=== PATIENT | male | born 1985 | race Caucasian/White ===

== ENCOUNTER 2018-10-18 05:30 | Day surgery (SDC) | payer OTHER ==
[2018-10-04 09:15] LABS: HEMATOCRIT 44.7 % (37.9-51.0); HEMOGLOBIN 15.6 g/dL (13.5-17.0); MEAN CORPUSCULAR HGB CONC 34.9 g/dL (32.0-36.0); MEAN CORPUSCULAR VOLUME 92 fl (80-97); PLATELET COUNT 199 10^3/uL (150-450); RED BLOOD COUNT 4.89 10^6/uL (4.35-5.55); RED CELL DISTRIBUTION WIDTH 12.6 % (11.5-14.0); WHITE BLOOD COUNT 5.1 10^3/uL (4.0-10.5)
[~2018-10-18 05:30] MED LIST: ACETAMINOPHEN 325 MG TABLET PO PRN; CEFAZOLIN 1 GM/D5W RTU 1 GM/50 ML RTUPB IV ONE; CEFAZOLIN 1 GM/D5W RTU 1 GM/50 ML RTUPB IV PRN; LACTATED RINGERS 1000 ML IV PRN; SCOPOLAMINE HYDROBROMIDE 1.5 MG PATCH.TD72 TD PRN
[2018-10-18] MEDS ORDERED: SCOPOLAMINE HYDROBROMIDE 1.5 MG PATCH.TD72 ONE (05:35)
[2018-10-18] MEDS ORDERED: BUPIVACAINE HCL 0.25 % INJ/PF (2.5 MG/1 ML) 30 ML VIAL ONE (06:50)
[2018-10-18] MEDS ORDERED: MIDAZOLAM 2 MG/2 ML INJ ONE (07:12)
[2018-10-18] MEDS ORDERED: FENTANYL CITRATE INJ/PF 100 MCG/2 ML AMPUL ONE (07:12)
[2018-10-18] MEDS ORDERED: HYDROMORPHONE HCL INJ/PF 2 MG/ML AMPULE ONE (07:13)
[2018-10-18] MEDS ORDERED: PROPOFOL INJ 200 MG/20 ML VIAL IV ONE (07:13)
[2018-10-18] MEDS ORDERED: PROMETHAZINE HCL INJ 25 MG/1 ML VIAL ONE (07:30)
[2018-10-18] MEDS ORDERED: ONDANSETRON HCL INJ/PF 4 MG/2 ML SDV IV PRN (07:54)
[2018-10-18] MEDS ORDERED: PROMETHAZINE HCL INJ 25 MG/1 ML VIAL IV PRN (07:54)
[2018-10-18] MEDS ORDERED: MEPERIDINE HCL/PF INJ 25 MG/1 ML DISP.SYRIN IV PRN (07:54)
[2018-10-18] MEDS ORDERED: MORPHINE SULFATE 10 MG/ML INJ IV PRN (07:54)
[2018-10-18] MEDS ORDERED: FENTANYL CITRATE INJ/PF 100 MCG/2 ML AMPUL IV PRN ×3 (07:54)
[2018-10-18] MEDS ORDERED: OXYCODONE-ACETAMINOPHEN 5-325 MG TABLET PO PRN ×3 (07:54→09:15)
[2018-10-18] MEDS ORDERED: DIPHENHYDRAMINE HCL 50 MG/ML VIAL IV PRN (07:54)
--- NOTE | 2018-10-18 09:15 | Discharge Summary ---
Discharge Summary (SDC) - Discharge Final Diagnosis: umbilical and ventral wall hernia Date of Surgery: 10/18/18 Discharge Date: 10/18/18 Condition: Good Forms: ASU Anesthesia D/C Instruction, Discharge POC-Surgical Service Treatment or Instructions: [facility] [address] [place] [id number] Discharge Instructions: Laparoscopic Surgery 1. General Information: a. DO NOT DRIVE a car or operate dangerous machinery for 3-4 days or while taking narcotic pain pills. b. DO NOT consume alcohol, tranquilizers, sleeping medications or any non- prescribed medications for 24 hours unless approved by your doctor or as long as taking narcotic prescription medications. c. DO NOT make important decisions or sign any important papers for the first 24 hours after surgery. d. When discharged home the same day of surgery have a responsible person with you for the first night. 2. Activity Restrictions: 8 weeks. a. NO heavy lifting, straining abdominal muscles, bending over a lot, yard work, house work, or sports for [address] for 3-4 days . c. It is fine to go for walks, up and down steps, ride in a car. d. Elevate your head when sleeping/resting. 3. Treatment: a. You may shower 48 hours after surgery, no baths or swimming for 2 weeks. Do not scrub incisoins. Allow warm water/soap to wash over wound, pat dry. Leave paper strips (steri-strips) on the skin to fall off on their own. If still on at postoperative visit they will be removed then. You may cover incisions with additional gauze/tape if needed. b. Drainage of fluid or blood is not unusual from an incision. If occurs, you can clean with peroxide and cotton ball daily and cover with dry gauze until the wound seals. c. If a lot of bleeding occurs, you can hold pressure with a gauze or cloth over the site for 10 minutes and it will usually stop. If bleeding continues you will need to call for possible evaluation in office or emergency room. d. Wear abdominal binder daily for 8 weeks. 4. Medications: a. _Toradol_ may be taken for pain as needed, one tablet every 6 hours. Do not take additional NSAIDs with Toradol, such as Ibuprofen, goodies powder, aleve, ect. This can cause indigestion, ulcers, and kidney problems with long-term use. You may take Tylenol with the Toradol. b. You should resume all normal medications unless a change is specified by your doctors. c 5. Diet: Normal diet 6. The following may occur after laparoscopic surgery: a. Shoulder or upper back ache from retained gas that should resolve in 1-2 days b. Soreness and bruising at incision sites will resolve with time. c. Scrotal swelling (labia in women) and bruising is often seen after hernia surgery. d. Sore throat e. Fatigue may last days to weeks. f. Difficulty urinating may occur and may need to come into emergency room for urinary catheter placement. 7. Notify Physician If: a. Worsening or pain not improved with pain medication b. Persistent nausea and vomiting c. Fever above 101 d. Persistent bleeding or swelling at operative site e. Unable to urinate and uncomfortable bladder 6-8 hours after surgery 8..Follow Up Care: a. Schedule a follow up appointment with your doctor for 2 weeks. In the event of any postoperative problems or questions or you may call the office during business hours or the On-Call physician evenings and weekends at [facility]. [facility] I understand the instructions for my postoperative care as described above and a copy has been given to me. Patient/Significant Other Witness Date Prescriptions: Ketorolac Tromethamine [Toradol 10 mg Tablet] 10 mg PO Q6HP PRN #20 tablet PRN Reason: Referrals: MILTON RIVAS MD [ACTIVE STAFF] - Discharge Diet: As Tolerated Discharge Activity: Balance Activity w/Rest, No Lifting Over 10 Pounds, No Lifting/Push/Pulling, Walk Frequently Report the Following to Your Physician Immediately: Nausea, Vomiting, Increase in Pain, Fever over 101 Degrees, Unusual Bleeding, Redness, Swelling, Warmth, Increased Soreness, Drainage-Foul Smelling
--- NOTE | 2018-10-18 09:15 | Operative Report ---
Operative Report DATE OF SURGERY: 10/18/18 PREOPERATIVE DIAGNOSIS: Multiple abdominal wall hernias POSTOPERATIVE DIAGNOSIS: Same with umbilical hernia and epigastric hernia OPERATION: 1. Reduction of multiple anterior abdominal wall hernias. 2. Primary closure of abdominal wall hernias, with placement of 10 x 15 cm Bard ventral light mesh in the intraperitoneal position SURGEON: MILTON RIVAS 1ST SEED TECHNICIAN: CELESTINA HARRIS ANESTHESIA: GA TISSUE REMOVED OR ALTERED: Portions of incarcerated fat COMPLICATIONS: None ESTIMATED BLOOD LOSS: Scant INTRAOPERATIVE FINDINGS: See below PROCEDURE: Patient was seen in the preop holding room where he was then taken to the main operating room and general anesthesia was induced. Arms were abducted, abdomen clipped of hair, then shaved and prepped in a sterile fashion with Betadine. A lap scopic instrumentation was set up for planned surgery. Surgical plan and surgical timeout were conducted. Markings were made on the skin for 3 port laparoscopy in the left upper quadrant left lower quadrant and right mid field. These at times with quarter percent Marcaine. A stab was made with 11 blade in the left upper quadrant. A Veress needle was inserted into the peritoneal cavity pneumoperitoneum was established. The Veress needle was removed, 5 mm trocar was inserted and a 5 mm flexible Endo I viewing scope was inserted. Under direct visualization 2 additional ports were placed in the described positions. We Inspected the peritoneal cavity for bleeding and visceral injury and there was no evidence of such. Careful inspection of the intra-abdominal wall revealed an element of diastases of the dorsalis fascia. Photos were taken. Using hook electrocautery dissection, retroperitoneum was opened around the umbilicus. An area of fascial defect was identified approximately 2 cm in diameter right at the umbilicus. All incarcerated retroperitoneal tissue was reduced. It is of the fascial defect were taken. Approximately 7 cm cephalad in the midline area for herniation. The falciform ligament was taken down with hook cautery dissection, and the retroperitoneal fat incarcerated in the epigastric hernia was reduced with gentle traction. Photos were taken of the fascial defect which is approximately 1/2 cm in diameter. Again the attenuated anterior abdominal wall fascia was noted by the splayed fibers of the anterior abdominal wall. Photos were taken. The first portion of the repair involved primary closure of the 2 fascial defects. This was performed by placing a single interrupted [id number] #1 PDS sutures through the anterior abdominal wall after making a suha in the skin with 11 blade and using the disposable percutaneous suture passer. 2 separate mini incisions were made for placement of the respective sutures to close the 2 defects. The peritoneum was decompressed, and not secured. We now reinforced the primary closure with instillation of the peritoneal mesh. We brought onto the field a 10 x 15 cm Bard ventral light mesh for checking for expiration date. The mesh was affixed with sutures at the 12, 3, 6, 9:00 positions with 0 PDS suture. The mesh was oriented, moistened, rolled, brought through the anterior abdominal wall through 1 of the trocar sites. The mesh was unrolled, and brought up to the anterior abdominal wall at the 4 respective positions again by making a small suha in the skin with 11 blade, and the suture passer, bringing the PDS sutures up to the intra-abdominal wall. Pneumoperitoneum was decompressed, and all knots tied. We now came around into concentric circles and placed the Sorber tack shyann into position, using all 20 shyann. We were very satisfied with the placement of the mesh against the anterior abdominal wall. Concluding photos were taken. We carefully inspected the underlying viscera and there is no evidence of injury. There is no mechanical bleeding We felt the operation was complete. Sponge and needle counts are correct. All ports removed under direct visualization, pneumoperitoneum evacuated, wounds closed with 3-0 Vicryl, benzoin and Steri-Strips. Patient tolerated procedure well, had an abdominal binder placed, extubated, taken recovery in stable condition.
[2018-10-18] MEDS ORDERED: OXYCODONE-ACETAMINOPHEN 5-325 MG TABLET ONE (10:03)
[2018-10-18 11:58] VITALS: BP 117/69
[2018-10-18] MEDS ORDERED: KETOROLAC TROMETHAMINE 60 MG/2 ML SDV ONE (12:00)
[2018-10-18] MEDS ORDERED: ROCURONIUM BROMIDE INJ 50 MG/5 ML VIAL IV ONE (12:00)
[2018-10-18] MEDS ORDERED: ONDANSETRON HCL INJ/PF 4 MG/2 ML SDV ONE (12:00)
[2018-10-18] MEDS ORDERED: SUCCINYLCHOLINE CHLORIDE INJ 200 MG/10 ML VIAL ONE (12:00)
[2018-10-18] MEDS ORDERED: DEXAMETHASONE SOD PHOSPHATE INJ 4 MG/1 ML VIAL ONE (12:00)
== END 2018-10-18 11:05 | disposition home or self-care (01) ==
LOC: OROUT 05:30
PROVIDERS: ATTEND Surgery
DX: K42.9 Umbilical hernia without obstruction or gangrene (principal); K43.9 Ventral hernia without obstruction or gangrene
CPT/HCPCS: 36415; 85027; 00750; 49652; C1781; J2250; J0690; J3490; J1100; J1885; J1170; J2550; J0330; J2405; J2704; 750; J3010